=== PATIENT | female | born 1930 | race Caucasian/White ===

== ENCOUNTER 2018-08-05 08:27 | Observation (INO) | payer MEDICARE ==
[~2018-08-05] VITALS: Ht 154.9 cm; Wt 51.4 kg
[2018-08-05] MEDS ORDERED: SODIUM CHLORIDE 0.9% 1,000 ML IV SCH ×2 (09:12→09:30)
[2018-08-05] MEDS ORDERED: PLEASE ENTER HEIGHT AND WEIGHT MC SCH (10:00)
[2018-08-05 10:11] VITALS: BP 143/60
[2018-08-05] MEDS ORDERED: LORA-445 PO (10:36)
[2018-08-05] MEDS ORDERED: DILT120C88 PO (10:36)
[2018-08-05] MEDS ORDERED: FURO20TA3 PO (10:36)
[2018-08-05] MEDS ORDERED: ATOR20TA37 PO (10:36)
[2018-08-05] MEDS ORDERED: POTA10TA12 PO (10:36)
[2018-08-05] MEDS ORDERED: ALLO100T30 PO (10:36)
[2018-08-05] MEDS ORDERED: APIX2.5T PO (10:36)
[2018-08-05] MEDS ORDERED: FENTANYL PF 250 MCG/5ML ONE (11:31)
[2018-08-05] MEDS ORDERED: PROPOFOL 10 MG/ML, 20ML ONE (11:59)
[2018-08-05] MEDS ORDERED: EPHEDRINE 50 MG/ML, 1ML ONE (11:59)
[2018-08-05] MEDS ORDERED: SUCCINYLCHOLINE 20 MG/ML, 10ML ONE (11:59)
[2018-08-05] MEDS ORDERED: ROCURONIUM 10MG/ML,5ML ONE (11:59)
[2018-08-05] MEDS ORDERED: LIDOCAINE 2%, 20ML ONE (12:00)
[2018-08-05] MEDS ORDERED: DEXAMETHASONE 4 MG/ML, 1ML ONE (12:00)
[2018-08-05] MEDS ORDERED: ONDANSETRON 2MG/ML, 2ML ONE (12:00)
[2018-08-05] MEDS ORDERED: ISOPROTERENOL 0.2MG/ML, 5ML ONE (12:37)
[2018-08-05] MEDS ORDERED: ONDANSETRON ODT 8 MG PO PRN (14:00)
[2018-08-05] MEDS ORDERED: FENTANYL PF 100 MCG/2ML IV PRN (14:00)
[2018-08-05] MEDS ORDERED: PROMETHAZINE 12.5 MG SUPP PR PRN (14:00)
[2018-08-05] MEDS ORDERED: MORPHINE SULFATE 4 MG/ML, 1ML IVPush PRN (14:00)
[2018-08-05] MEDS ORDERED: ALBUTEROL SULFATE 2.5 MG/3 ML NPPB PRN (14:00)
[2018-08-05] MEDS ORDERED: ONDANSETRON 2MG/ML, 2ML IV PRN (14:00)
[2018-08-05] MEDS ORDERED: LORazepam 0.5MG TABLET PO PRN (14:00)
[2018-08-05] MEDS ORDERED: OXYcodone 5 MG/5 ML ORAL.SOL UDC PO PRN (14:00)
[2018-08-05] MEDS ORDERED: MEPERIDINE/PF 25MG/0.5ML IVPush PRN (14:00)
[2018-08-05] MEDS ORDERED: EPHEDRINE 50 MG/ML, 1ML IVPush PRN (14:00)
[2018-08-05] MEDS ORDERED: HYDROmorphone 2 MG/ML, 1ML IVPush PRN (14:00)
[2018-08-05] MEDS ORDERED: ACETAMINOPHEN 325 MG TABLET PO PRN (14:00)
[2018-08-05] MEDS ORDERED: hydrALAzine 20 MG/ML, 1ML IV PRN (14:00)
[2018-08-05] MEDS ORDERED: PROMETHAZINE 25 MG/ML, 1ML IV PRN (14:00)
[2018-08-05] MEDS ORDERED: DIAZEPAM 5 MG/ML, 2ML IVPush PRN (14:00)
[2018-08-05] MEDS ORDERED: HALOPERIDOL 5 MG/ML IV PRN (14:00)
[2018-08-05] MEDS ORDERED: MIDAZOLAM 1 MG/ML, 2ML IV PRN (14:00)
[2018-08-05] MEDS ORDERED: LABETALOL 5MG/ML, 20ML IV PRN (14:00)
[2018-08-05 15:02] VITALS: BP 108/61
[2018-08-05 20:26] VITALS: BP 123/62
[2018-08-05] MEDS: ATORVASTATIN 20 MG TABLET PO SCH ×2 (20:55→20:56)
[2018-08-06 00:53] VITALS: BP 127/63
[2018-08-06 07:01] VITALS: BP 123/72
[2018-08-06] MEDS ORDERED: FUROSEMIDE 20 MG TABLET PO SCH (09:00)
[2018-08-06] MEDS ORDERED: ALLOPURINOL 100 MG TABLET PO SCH (09:00)
[2018-08-06] MEDS ORDERED: POTASSIUM CHLORIDE 10 MEQ TABLET.ER PO SCH (09:00)
[2018-08-06] MEDS ORDERED: APIXABAN 2.5 MG TABLET PO SCH (09:00)
[2018-08-06] MEDS ORDERED: DILTIAZEM 120 MG CAP.ER.24H PO SCH (09:00)
== END 2018-08-06 12:25 | disposition home or self-care (01) ==
LOC: CACL 08:27 → EDBD 10:00 → ORIP 13:37 → 5SO 15:01 → DCLOUNGE 08-06 12:11
PROVIDERS: ADMIT Internal Medicine Cardiovascular Disease; ATTEND Internal Medicine Cardiovascular Disease
DX: I47.1 Supraventricular tachycardia (principal); I48.91 Unspecified atrial fibrillation; I48.92 Unspecified atrial flutter; C91.11 Chronic lymphocytic leukemia of B-cell type in remission; Z79.899 Other long term (current) drug therapy; Z87.891 Personal history of nicotine dependence
CPT/HCPCS: 93312; 93321; 93325; 93613; 93623; 93653; C1730; C1731; C1732; C1894; G0378; J0330; J1100; J2405; J2704; J3010; J3490